=== PATIENT | male | born 1960 | race Caucasian/White ===

== ENCOUNTER 2021-08-10 12:23 | Emergency (ER) | payer OTHER ==
[~2021-08-10] VITALS: Ht 182.9 cm; Wt 83.9 kg
--- NOTE | 2021-08-10 13:00 | NUR ---
61 yrs male WAKLING IN TO ed c/o s/p fell down 48 hrs ago on hot stone skin scare no bleeding on site
[2021-08-10] MEDS ORDERED: PIPERACILLIN SODIUM/TAZOBACTAM 3.375 G in IV DEXTROSE 5% 50 ML IV ONE (13:30)
[2021-08-10] MEDS ORDERED: VANCOMYCIN IV 1,000 MG in IV DEXTROSE 5% 250 ML IV ONE (13:30)
[2021-08-10] MEDS ORDERED: TDAP DIPH,PERTUSS,TET VAC/PF 0.5 ML DISP.SYRIN IM ONE ×2 (13:30→14:04)
--- NOTE | 2021-08-10 13:45 | NUR ---
examine by DR SANDOVAL inserted angocatheter # [id number] on lt arm blood drow and sent to lab blood culture x2 sent to lab cxr done on lt leg pt refused t-d radha uptodate last t-d 2 yrs ago
[2021-08-10] MEDS ORDERED: VANCOMYCIN IV 200 ML ONE (14:03)
[2021-08-10] MEDS ORDERED: PIPERACILLIN/TAZOBACTAM/D5W 50 ML IV ONE (14:05)
[2021-08-10 14:07] LABS: HEMATOCRIT 43.9 % (36.7-47.1); MEAN CORPUSCULAR HEMOGLOBIN 28.9 uug (23.8-33.4); MEAN CORPUSCULAR VOLUME 84.5 fL (73.0-96.2); PLATELET COUNT (AUTO) 253 K/uL (152-348)
[2021-08-10 14:25] LABS: BILIRUBIN,DIRECT 0.1 mg/dL (0.0-0.2); BILIRUBIN,TOTAL 0.4 mg/dL (0.2-1.0); CREATININE 0.7 mg/dL (0.6-1.3); POTASSIUM 3.7 mmol/L (3.5-5.1); TOTAL PROTEIN, SERUM 6.7 g/dL (6.4-8.2)
[2021-08-10] MEDS ORDERED: ONDANSETRON 4 MG/2 ML VIAL IV ONE (14:45)
[2021-08-10] MEDS ORDERED: MORPHINE SULFATE 4 MG/1 ML DISP.SYRIN IV ONE (14:45)
[2021-08-10] MEDS ORDERED: HYDR-3972 PO (15:35)
[2021-08-10] MEDS ORDERED: CEPH500C2 PO (15:35)
--- NOTE | 2021-08-10 16:20 | NUR ---
iv antbiotic complted no advance reaction AT BED SIDE spook with pt about plan of care and d/c plan D/C instraction given to pt fully understood d/c home with wound care
[2021-08-10 16:53] VITALS: BP 150/92
== END 2021-08-10 16:57 | disposition home or self-care (01) ==
LOC: ER 12:35
DX: R55 Syncope and collapse (principal); T24.202A Burn of second degree of unspecified site of left lower limb, except ankle and foot, initial encounter; X16.XXXA Contact with hot heating appliances, radiators and pipes, initial encounter; Y92.019 Unspecified place in single-family (private) house as the place of occurrence of the external cause; I10 Essential (primary) hypertension; L08.9 Local infection of the skin and subcutaneous tissue, unspecified; R94.31 Abnormal electrocardiogram [ECG] [EKG]
CPT/HCPCS: 16020; 36415; 70450; 71045; 73590; 80048; 80076; 83605; 84484; 85025; 85730; 87040 ×2; 93005; 96365; 96366; 96368; 96375; 99285; J2270; J2405; J2543; J3370; 70030-TC; 90715; A4663; J7030